=== PATIENT | female | born 1995 | race Caucasian/White ===

== ENCOUNTER 2016-12-02 20:05 | Emergency (ER) | payer BC ==
[2016-12-02] MEDS ORDERED: Prochlorperazine 10 MG/2 ML VIAL ONE (21:51)
[2016-12-02] MEDS ORDERED: diphenhydrAMINE HCl 50 MG/ML 1 ML VIAL ONE (21:51)
[2016-12-02] MEDS ORDERED: Ketorolac Tromethamine 30 MG/ML VIAL ONE (21:51)
== END 2016-12-02 23:41 | disposition home or self-care (01) ==
LOC: SCSER 20:05
DX: G43.909 Migraine, unspecified, not intractable, without status migrainosus (principal); F41.9 Anxiety disorder, unspecified
CPT/HCPCS: 96361; 96374; 96375; J0780; J1200; J1885